=== PATIENT | male | born 1960 | race Caucasian/White ===

== ENCOUNTER 2020-03-30 07:28 | Day surgery (SDC) | payer OTHER ==
--- NOTE | 2020-03-27 10:19 | RAD REPORT ---
EXAM DESCRIPTION: RAD - Chest Pa And Lat (2 Views) - 03/27/2020 10:13 am CLINICAL HISTORY: pre op Chest pain. COMPARISON: No comparisons FINDINGS: The lungs are clear. The heart is normal in size. No displaced fractures. IMPRESSION: No acute or concerning finding suspected.
[2020-03-27 11:15] LABS: Absolute Lymphocytes (CBC) 1.2 K/uL (0.7-4.9); Basophils % 2.8 % (0-1.3); Hematocrit 42.5 % (39.6-49.0); Lymphocytes % 23.9 % (15.3-44.8); MPV 9.7 fL (7.6-11.3)
[2020-03-27 11:26] LABS: BUN Blood Urea Nitrogen 18 mg/dL (7-18); Bicarbonate 29 mmol/L (21-32); Glucose Level 95 mg/dL (74-106); Potassium 4.5 mmol/L (3.5-5.1); Sodium Level 143 mmol/L (136-145)
--- NOTE | 2020-03-29 07:52 | EKG ---
Test Date: 2020-03-27 Test Time: 10:04:23 Technical Administrator: TG MEASUREMENT RESULTS: Intervals: Rate: 46 [place]: 160 QRSD: 122 QT: 446 QTc: 390 [place]: P: 35 [place]: 160 QRS: 29 T: 26 INTERPRETIVE STATEMENTS: Sinus bradycardia Nonspecific intraventricular conduction delay Borderline ECG No previous ECG available for comparison Electronically Signed On 03-29-20 07:49:45 CDT by Travis Duron
[2020-03-30] MEDS ORDERED: CEFAZOLIN/SWI 1gm 0 GM/0 ML SYR ONE (07:54)
[2020-03-30] MEDS: Ringers Lactate 1,000 ML IV ONE ×3 (08:00→12:56)
[2020-03-30] MEDS ORDERED: BUPIVACAINE 0.5% PF 10 ML VIAL ONE (08:10)
[2020-03-30] MEDS ORDERED: propofoL 200 MG/20 ML VIAL IV ONE (08:14)
[2020-03-30] MEDS ORDERED: FENTANYL CITR 100 MCG/2 ML ONE (08:14)
[2020-03-30] MEDS ORDERED: ROCURONIUM 50 MG/5 ML VIAL IV ONE (08:14)
[2020-03-30] MEDS ORDERED: LIDOCAINE 2% MPF 5 ML VIAL ONE (08:14)
[2020-03-30] MEDS ORDERED: dexAMETHasone 10 MG/ML VIAL ONE (08:14)
[2020-03-30] MEDS ORDERED: MIDAZOLAM HCL 2 MG/2 ML INJ ONE (08:14)
[2020-03-30] MEDS ORDERED: KETOROLAC 30 MG/ML INJ ONE (09:15)
[2020-03-30] MEDS ORDERED: ONDANSETRON 4 MG/2 ML VIAL ONE (09:40)
[2020-03-30] MEDS ORDERED: HYDROCODONE/APAP 7.5/325 MG TAB ONE (10:29)
[2020-03-30] MEDS ORDERED: CEFAZOLIN/SWI 1gm 1 GM/10 ML SYR ONE (13:13)
[2020-03-30 14:08] VITALS: BP 107/63
[2020-03-30 14:11] VITALS: TEMP 97.2; O2SAT 98
--- NOTE | 2020-03-30 19:16 | OP ---
Date of Procedure: 03/30/2020 Surgeon: Pavan Ruffin MD Apartment Maintenance Supervisor: BARBARA Mcduffie Preoperative Diagnosis: Left inguinal hernia. Postoperative Diagnosis: Left inguinal hernia. Procedure: Repair of left inguinal hernia. Estimated Blood Loss: Minimal. Specimens: Hernia sac and cord lipoma. Findings: As above with a sliding hernia. Anesthesia: General. Complications: None. The patient tolerated the procedure in stable condition, taken to Recovery in good general condition. Procedure In Detail: The patient was brought to the OR and placed in supine position. General anest hesia was begun. The patient was prepped and draped in usual sterile fashion. Marcaine 0.5% was inf iltrated in a field block fashion in the left groin. A 15 blade was used to make a 4 cm oblique inci danielle between the pubic tubercle and the anterior iliac superior spine. Subcutaneous tissue divided. Rodolfo's fascia identified and divided. Aponeurosis identified, mobilized inferior to expose shelvi ng edge and then opened through the external ring. The ilioinguinal nerve identified and retracted o ut of the field of dissection. Cord mobilized at the pubic tubercle and skeletonized. An indirect s ac and a cord lipoma present. Cord lipoma excised, the base tied off with 2-0 chromic, sent to Patho logy. The hernia sac opened. There was a sliding hernia with the epiploic appendages of the sigmoid colon attached to the medial wall. This was dissected with sharp and blunt dissection, and this was reduced back in the peritoneal cavity. Then, a high ligation of the hernia sac was done with 2-0 Pr olene, suture ligature and free hand tie. The hernia sac was excised, sent to Pathology, and then co rd structures and ilioinguinal nerve were placed back in anatomic location after Marlex mesh plug she dandre in the internal ring and secured with VersaTack stapler. Onlay mesh was placed on the inguinal f rowena and secured medially to the pubic tubercle, superior to the conjoined tendon, laterally to each other, inferiorly to the shelving edge. Then, cord structures and ilioinguinal nerve were placed garland k in anatomic location, 2-0 Prolene used to close the aponeurosis, 3-0 chromic used to approximate Sc arpa's fascia and close the skin. Sterile dressing applied. The patient was awakened and taken to ecovery in good general condition. Discharge Note: The patient will go to Day Surgery and home when stable. Disposition: Home. Condition: Stable. Discharge Instructions: Resume home medications and diet. Activity as tolerated. No heavy lifting. Remove outer dressing in 2 days. Shower. Keep wound clean and dry. Scrotal support, ice pack. K eep Steri-Strips on at all times. Tylenol No. 3 one tablet p.o. q.4 p.r.n. pain. Follow up in [place] in one week. Call for appointment. VINNIE/AI Voice ID: [id number] Report ID: [id number]
== END 2020-03-30 11:40 | disposition home or self-care (01) ==
LOC: OR 07:28 → EDSTATUS 08:30 → OR 11:53
PROVIDERS: ATTEND Surgery
PROC: 0YQ60ZZ Repair Left Inguinal Region, Open Approach (ICD-10-PCS; principal; 2020-03-30 08:30)
DX: K40.90 Unilateral inguinal hernia, without obstruction or gangrene, not specified as recurrent (principal); Z11.59 Encounter for screening for other viral diseases; D17.6 Benign lipomatous neoplasm of spermatic cord; E78.00 Pure hypercholesterolemia, unspecified
CPT/HCPCS: 93005; 85025; 80048; 36415; 88302; 71046; 49505; U0002; J2704; J2250; J3010; J1100; J0690; J7120; J2405